=== PATIENT | male | born 1980 | race Caucasian/White ===

== ENCOUNTER 2018-06-17 13:39 | Emergency (ER) | payer OTHER, SELFPAY ==
[2018-06-17 13:57] VITALS: BP 156/89; PULSE 83; RESP 20; TEMP 36.9; O2SAT 100
--- NOTE | 2018-06-17 14:42 | ED.EPISTAXIS ---
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) Duration: constant and minutes (#) (30) Context: other (none) Treatment prior to arrival: head leaned forward Related Data Home Medications Medication Instructions Recorded Confirmed No Known Home Medications 06/17/18 06/17/18 Allergies Allergy/AdvReac Type Severity Reaction Status Date / Time No Known Drug Allergies Allergy Verified 06/17/18 14:02 Review of Systems <SARAH Mauro - Last Filed: 06/17/18 15:48> Review of Systems All systems reviewed & are unremarkable except as noted in HPI and below Constitutional Reports as per HPI, Reports system reviewed and no additional complaints, except as docu and Denies headache(s) Eyes Denies eye discharge, Denies irritation and Denies itchy eyes ENT Ears, Nose, Mouth, and Throat: Reports as per HPI, Denies bleeding gums, Denies dental pain, Denies vertigo, Denies dizziness, Denies ear discharge, Denies otalgia, Denies facial pain, Denies headache(s), Denies hearing loss, Reports epistaxis, Denies nasal congestion, Denies nasal discharge, Denies nasal trauma, Denies neck pain, Denies nose pain, Denies post nasal drip, Denies sinus pain, Denies sinus pressure and Denies sore throat Cardiovascular Denies dyspnea Respiratory Denies dyspnea Musculoskeletal Denies neck pain Neurologic Denies vertigo, Denies dizziness and Denies headache(s) Allergic/Immunologic Denies itchy eyes Exam <SARAH Mauro - Last Filed: 06/17/18 15:48> Initial Vital Signs Initial Vital Signs: Vital Signs Temperature 98.4 F 06/17/18 13:57 Pulse Rate 83 06/17/18 13:57 Respiratory Rate 20 06/17/18 13:57 Blood Pressure 156/89 H 06/17/18 13:57 Pulse Oximetry 100 06/17/18 13:57 Const General: cooperative, healthy appearing, comfortable, well developed and well groomed Nutritional Appearance: average body habitus Orientation: alert, awake and oriented x3 [facility] Head: normal to inspection and normocephalic Ears: hearing grossly normal bilaterally, external ears normal, TM's normal bilaterally and mastoids normal Nose: external nose normal, nares normal, No epistaxis, No nasal discharge, No nasal polyp, No septum abnormal and other (dried nasal blood in B narea, no active bleeding) Face and sinus: normal facial exam, sinuses nontender and face symmetric Mouth: oral mucosae normal, lip normal, tongue normal, oropharynx normal and moist mucous membranes Teeth and gingiva: dentition normal and gingiva normal Throat: posterior oropharynx normal, tonsils normal and uvula midline Eyes General: appearance normal, both eyes and all related structures Visual Butler: normal visual butler by confrontation Eyelids: eyelids normal Conjunctivae: conjunctivae normal Sclera: sclerae normal Pupils: PERRL EOM: EOM intact bilaterally Neck Neck: normal visual inspection, full ROM, no meningeal signs, trachea midline, supple and No lymphadenopathy Chest Chest: normal inspection of the chest Resp Effort & Inspection: normal respiratory effort and able to speak in complete sentences Auscultation: clear to auscultation bilaterally Cardio Rate: regular rate Rhythm: regular rhythm Heart Sounds: S1 normal and S2 normal Back/Spine/Pelvis Cervical Spine: cervical ROM normal Thoracic/Lumbar Spine: thoraco-lumbar ROM normal Skin General: no rashes or lesions noted, elasticity normal, turgor normal and dry skin Neuro General: alert, awake, oriented x3 and meningeal signs present Cognition: normal cognition Speech: speech normal Gait: normal gait Motor: muscle tone normal throughout Sensory Exam: no sensory deficits noted Extrem General: normal to inspection and full ROM Psych Appearance: grossly normal and well kempt Mental Status: mental status grossly normal Speech and Movement: speech and movement normal Mood: congruent mood Affect: normal affect Attitude: cooperative Thought Process: normal Thought Content: normal Judgment: judgment good <Abiola White, DO - Last Filed: 06/18/18 07:23> Initial Vital Signs Initial Vital Signs: Vital Signs Temperature 98.4 F 06/17/18 13:57 Pulse Rate 83 06/17/18 13:57 Respiratory Rate 20 06/17/18 13:57 Blood Pressure 156/89 H 06/17/18 13:57 Pulse Oximetry 100 06/17/18 13:57 Course <SARAH Mauro - Last Filed: 06/17/18 15:48> Course Narrative: nurse had applied nasal clamps with gauze packing and bleeding had stopped by time of exam Vital Signs - 8 hr 06/17/18 13:57 06/17/18 15:08 Temperature 98.4 F Pulse Rate 83 73 Respiratory Rate 20 16 Blood Pressure 156/89 H Blood Pressure [Right Arm] 145/91 H Pulse Oximetry 100 99 <Abiola White DO - Last Filed: 06/18/18 07:23> Vital Signs - 8 hr 06/17/18 13:57 06/17/18 15:08 Temperature 98.4 F Pulse Rate 83 73 Respiratory Rate 20 16 Blood Pressure 156/89 H Blood Pressure [Right Arm] 145/91 H Pulse Oximetry 100 99 MDM - Epistaxis <SARAH Mauro - Last Filed: 06/17/18 15:48> Differential Diagnosis Likely anterior epistaxis, posterior epistaxis and other (uri, nasal hematoma, sinusitis, allergies, nasal lac/abrasion) Discharge Plan Departure Patient Disposition: Home Clinical Impression: Epistaxis Discharge Date/Time: 06/17/18 15:11 Interventions: ED Discharge Assessment Last Done: 06/17/18 15:10 Instructions: Nosebleed Prescriptions: No Action No Known Home Medications RF: 0 Referrals: Chidi Rivas MD [Physician] - Chidi Javier MD [Physician] - Feilx Salinas [Non-Staff] - (follow up as needed) <Abiola White DO - Last Filed: 06/18/18 07:23> Cosign ED Attending Cosolenaature Attestation: I was immediately available in the department for consultation. Documentation has been reviewed. I agree with assessment and plan.
--- NOTE | 2018-06-17 15:05 | ED_ITS ---
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) Duration: constant and minutes (#) (30) Context: other (none) Treatment prior to arrival: head leaned forward Related Data Home Medications Medication Instructions Recorded Confirmed No Known Home Medications 06/17/18 06/17/18 Allergies Allergy/AdvReac Type Severity Reaction Status Date / Time No Known Drug Allergies Allergy Verified 06/17/18 14:02 Review of Systems <SARAH Mauro - Last Filed: 06/17/18 15:48> Review of Systems All systems reviewed & are unremarkable except as noted in HPI and below Constitutional Reports as per HPI, Reports system reviewed and no additional complaints, except as docu and Denies headache(s) Eyes Denies eye discharge, Denies irritation and Denies itchy eyes ENT Ears, Nose, Mouth, and Throat: Reports as per HPI, Denies bleeding gums, Denies dental pain, Denies vertigo, Denies dizziness, Denies ear discharge, Denies otalgia, Denies facial pain, Denies headache(s), Denies hearing loss, Reports epistaxis, Denies nasal congestion, Denies nasal discharge, Denies nasal trauma , Denies neck pain, Denies nose pain, Denies post nasal drip, Denies sinus pain , Denies sinus pressure and Denies sore throat Cardiovascular Denies dyspnea Respiratory Denies dyspnea Musculoskeletal Denies neck pain Neurologic Denies vertigo, Denies dizziness and Denies headache(s) Allergic/Immunologic Denies itchy eyes Exam <SARAH Mauro - Last Filed: 06/17/18 15:48> Initial Vital Signs Initial Vital Signs: Vital Signs Temperature 98.4 F 06/17/18 13:57 Pulse Rate 83 06/17/18 13:57 Respiratory Rate 20 06/17/18 13:57 Blood Pressure 156/89 H 06/17/18 13:57 Pulse Oximetry 100 06/17/18 13:57 Const General: cooperative, healthy appearing, comfortable, well developed and well groomed Nutritional Appearance: average body habitus Orientation: alert, awake and oriented x3 [facility] Head: normal to inspection and normocephalic Ears: hearing grossly normal bilaterally, external ears normal, TM's normal bilaterally and mastoids normal Nose: external nose normal, nares normal, No epistaxis, No nasal discharge, No nasal polyp, No septum abnormal and other (dried nasal blood in B narea, no active bleeding) Face and sinus: normal facial exam, sinuses nontender and face symmetric Mouth: oral mucosae normal, lip normal, tongue normal, oropharynx normal and moist mucous membranes Teeth and gingiva: dentition normal and gingiva normal Throat: posterior oropharynx normal, tonsils normal and uvula midline Eyes General: appearance normal, both eyes and all related structures Visual Butler: normal visual butler by confrontation Eyelids: eyelids normal Conjunctivae: conjunctivae normal Sclera: sclerae normal Pupils: PERRL EOM: EOM intact bilaterally Neck Neck: normal visual inspection, full ROM, no meningeal signs, trachea midline, supple and No lymphadenopathy Chest Chest: normal inspection of the chest Resp Effort & Inspection: normal respiratory effort and able to speak in complete sentences Auscultation: clear to auscultation bilaterally Cardio Rate: regular rate Rhythm: regular rhythm Heart Sounds: S1 normal and S2 normal Back/Spine/Pelvis Cervical Spine: cervical ROM normal Thoracic/Lumbar Spine: thoraco-lumbar ROM normal Skin General: no rashes or lesions noted, elasticity normal, turgor normal and dry skin Neuro General: alert, awake, oriented x3 and meningeal signs present Cognition: normal cognition Speech: speech normal Gait: normal gait Motor: muscle tone normal throughout Sensory Exam: no sensory deficits noted Extrem General: normal to inspection and full ROM Psych Appearance: grossly normal and well kempt Mental Status: mental status grossly normal Speech and Movement: speech and movement normal Mood: congruent mood Affect: normal affect Attitude: cooperative Thought Process: normal Thought Content: normal Judgment: judgment good <Abiola White, DO - Last Filed: 06/18/18 07:23> Initial Vital Signs Initial Vital Signs: Vital Signs Temperature 98.4 F 06/17/18 13:57 Pulse Rate 83 06/17/18 13:57 Respiratory Rate 20 06/17/18 13:57 Blood Pressure 156/89 H 06/17/18 13:57 Pulse Oximetry 100 06/17/18 13:57 Course <SARAH Mauro - Last Filed: 06/17/18 15:48> Course Narrative: nurse had applied nasal clamps with gauze packing and bleeding had stopped by time of exam Vital Signs - 8 hr 06/17/18 13:57 06/17/18 15:08 Temperature 98.4 F Pulse Rate 83 73 Respiratory Rate 20 16 Blood Pressure 156/89 H Blood Pressure [Right Arm] 145/91 H Pulse Oximetry 100 99 <Abiola White DO - Last Filed: 06/18/18 07:23> Vital Signs - 8 hr 06/17/18 13:57 06/17/18 15:08 Temperature 98.4 F Pulse Rate 83 73 Respiratory Rate 20 16 Blood Pressure 156/89 H Blood Pressure [Right Arm] 145/91 H Pulse Oximetry 100 99 MDM - Epistaxis <SARAH Mauro - Last Filed: 06/17/18 15:48> Differential Diagnosis Likely anterior epistaxis, posterior epistaxis and other (uri, nasal hematoma, sinusitis, allergies, nasal lac/abrasion) Discharge Plan Departure Patient Disposition: Home Clinical Impression: Epistaxis Discharge Date/Time: 06/17/18 15:11 Interventions: ED Discharge Assessment Last Done: 06/17/18 15:10 Instructions: Nosebleed Prescriptions: No Action No Known Home Medications RF: 0 Referrals: Chidi Rivas MD [Physician] - Chidi Javier MD [Physician] - Felix Salinas [Non-Staff] - (follow up as needed) <Abiola White DO - Last Filed: 06/18/18 07:23> Cosign ED Attending Cosolenaature Attestation: I was immediately available in the department for consultation. Documentation has been reviewed. I agree with assessment and plan.
[2018-06-17 15:08] VITALS: BP 145/91; PULSE 73; RESP 16; O2SAT 99
== END 2018-06-17 15:11 | disposition home or self-care (01) ==
PROVIDERS: Emergency Provider Nurse Practitioner
DX: R04.0 Epistaxis (principal)
CPT/HCPCS: 99282